=== PATIENT | female | born 1965 | race Caucasian/White ===

== ENCOUNTER 2017-09-08 14:23 | Inpatient (IN) | payer OTHER ==
[~2017-09-08] VITALS: Ht 157.5 cm; Wt 80.6 kg
[2017-09-08 14:46] VITALS: BP 170/91; PULSE 96; RESP 23; TEMP 98.3
--- NOTE | 2017-09-08 14:55 | PD ---
HPI Chief Complaint: Psychiatric Symptoms Time Seen by Provider: 14:37 Travel History International Travel<30 days: No Contact w/Intl Traveler<30days: No Traveled to known affect area: No History of Present Illness HPI 51-year-old female was [place] acted and brought in for evaluation. Patient was [place] acted for combative and threatening behavior to her at home. Patient denies any headache. Patient denies any chest pain or shortness of breath. Patient denies abdominal pain. Patient denies any fever chills. Patient has history of hypertension, diabetes, hyperlipidemia. Patient is unable to tolerate medication for hyperlipidemia. Patient is not on any medication for hyperlipidemia. Patient denies any alcohol or illicit drug abuse. Patient has history of ADD and was on Adderall until recently when she took herself off the Adderall. Patient tried to lose weight and was taking caffeine supplement. Patient states that the combination with caffeine and Adderall made her very jittery so she stopped taking Adderall. PFSH Past Medical History Diabetes: Yes ?: Not Social History Tobacco Use: No Allergies-Medications (Allergen,Severity, Reaction): Coded Allergies: No Known Allergies (Unverified , 09/08/17) Reported Meds & Prescriptions Reported Meds & Active Scripts Active Reported Climara Pro Patch 168 HR (Estradiol-Levonorgestrel Patch 168 HR) 0.045-0.015 Mg/ 24 Hr Patch 1 Patch I-DERMAL Q7D Remove old patch when new one placed. Lisinopril 10 Mg Tab 10 Mg PO DAILY Metformin (Metformin HCl) 500 Mg Tab 1,000 Mg PO DAILY With a meal Adderall (Amphetamine-Dextroamphetamine) 30 Mg Tab 60 Mg PO BID Avoid late evening doses. Space doses at least 4 to 6 hours if more than once/day dosing. Xanax (Alprazolam) 0.5 Mg Tab 0.5 Mg PO BID Victoza Inj (Liraglutide Inj) 18 Mg/3 Ml Pen 1.2 Mg SQ DAILY Review of Systems General / Constitutional: No: Fever Eyes: No: Visual changes HENT: No: Headaches Cardiovascular: No: Chest Pain or Discomfort Respiratory: No: Shortness of Breath Gastrointestinal: No: Abdominal Pain Genitourinary: No: Dysuria Musculoskeletal: No: Pain Skin: No Rash Neurologic: No: Weakness Psychiatric: No: Depression Endocrine: No: Polydipsia Hematologic/Lymphatic: No: Easy Bruising Physical Exam Narrative GENERAL: Well-nourished, well-developed patient. SKIN: Focused skin assessment warm/dry. HEAD: Normocephalic. EYES: No scleral icterus. No injection or drainage. NECK: Supple, trachea midline. No JVD or lymphadenopathy. CARDIOVASCULAR: Regular rate and rhythm without murmurs, gallops, or rubs. RESPIRATORY: Breath sounds equal bilaterally. No accessory muscle use. GASTROINTESTINAL: Abdomen soft, non-tender, nondistended. MUSCULOSKELETAL: No cyanosis, or edema. BACK: Nontender without obvious deformity. No CVA tenderness. Neurologic exam: Patient awake alert oriented 3. No obvious focal neurological deficit. Data Data Last Documented VS Vital Signs Date Time Temp Pulse Resp B/P (MAP) Pulse Ox O2 Delivery O2 Flow Rate FiO2 09/09/17 06:39 107 20 129/87 (101) 98 Room Air 09/08/17 14:46 98.3 Orders Orders Complete Blood Count With Diff (09/08/17 14:45) Comprehensive Metabolic Panel (09/08/17 14:45) Thyroid Stimulating Hormone (09/08/17 14:45) Psych Screen (09/08/17 14:45) Drug Screen, Random Urine (09/08/17 14:45) Acetaminophen (Tylenol) (09/08/17 17:30) Diet Regular Basic (09/08/17 Dinner) Clonidine (Catapres) (09/08/17 19:45) Olanzapine Odt (Zyprexa Zydis Odt) (09/08/17 20:15) Diphenhydramine (Benadryl) (09/08/17 20:30) Haloperidol Inj (Haldol Inj) (09/09/17 09:02) Diet Diabetic (09/09/17 Lunch) Lorazepam Inj (Ativan Inj) (09/09/17 09:03) Haloperidol Inj (Haldol Inj) (09/09/17 09:01) Lorazepam Inj (Ativan Inj) (09/09/17 09:15) Lorazepam Inj (Ativan Inj) (09/09/17 09:01) Quetiapine (Seroquel) (09/09/17 21:00) Admit To Inpatient Psych (09/09/17 ) Vital Signs (Adult) RAMON.Q12H.E (09/09/17 09:09) Activity Oob Ad Heidi (09/09/17 09:09) Diet Heart Healthy (09/09/17 Breakfast) Lorazepam (Ativan) (09/09/17 09:15) Lorazepam Inj (Ativan Inj) (09/09/17 09:15) Acetaminophen (Tylenol) (09/09/17 09:15) Magnesium Hydroxide Liq (Milk Of Magnesi (09/09/17 09:15) Al-Mag Hy-Si 40-40-4 Mg/Ml Liq (Mag-Al P (09/09/17 09:15) Nicotine 21 Mg Patch.24 Hr (Habitrol 21 (09/09/17 09:15) Basic Metabolic Panel (Bmp) (09/10/17 06:00) Lipid Profile (09/10/17 06:00) Hemoglobin (Hgb) A1c (09/10/17 06:00) Alcohol Withdrawal Asmt-Ciwa Q4HX18 (09/09/17 09:09) Flumazenil Inj (Romazicon Inj) (09/09/17 09:15) Lorazepam (Ativan) (09/09/17 09:15) Lorazepam Inj (Ativan Inj) (09/09/17 09:15) Lorazepam (Ativan) (09/09/17 09:15) Lorazepam Inj (Ativan Inj) (09/09/17 09:15) Lorazepam Inj (Ativan Inj) (09/09/17 09:15) Lorazepam Inj (Ativan Inj) (09/09/17 09:15) Labs Laboratory Tests Test 09/08/17 15:04 White Blood Count 7.2 TH/MM3 Red Blood Count 5.40 MIL/MM3 Hemoglobin 14.4 GM/DL Hematocrit 43.8 % Mean Corpuscular Volume 81.1 FL Mean Corpuscular Hemoglobin 26.8 PG Mean Corpuscular Hemoglobin Concent 33.0 % Red Cell Distribution Width 14.3 % Platelet Count 291 TH/MM3 Mean Platelet Volume 7.5 FL Neutrophils (%) (Auto) 72.1 % Lymphocytes (%) (Auto) 21.2 % Monocytes (%) (Auto) 5.8 % Eosinophils (%) (Auto) 0.5 % Basophils (%) (Auto) 0.4 % Neutrophils # (Auto) 5.2 TH/MM3 Lymphocytes # (Auto) 1.5 TH/MM3 Monocytes # (Auto) 0.4 TH/MM3 Eosinophils # (Auto) 0.0 TH/MM3 Basophils # (Auto) 0.0 TH/MM3 CBC Comment DIFF FINAL Differential Comment Blood Urea Nitrogen 21 MG/DL Creatinine 0.74 MG/DL Random Glucose 174 MG/DL Total Protein 7.9 GM/DL Albumin 4.0 GM/DL Calcium Level 9.1 MG/DL Alkaline Phosphatase 79 U/L Aspartate Amino Transf (AST/SGOT) 18 U/L Alanine Aminotransferase (ALT/SGPT) 26 U/L Total Bilirubin 0.3 MG/DL Sodium Level 140 MEQ/L Potassium Level 4.1 MEQ/L Chloride Level 106 MEQ/L Carbon Dioxide Level 23.8 MEQ/L Anion Gap 10 MEQ/L Estimat Glomerular Filtration Rate 82 ML/MIN Thyroid Stimulating Hormone 3rd Gen 2.070 uIU/ML Urine Opiates Screen NEG Urine Barbiturates Screen NEG Urine Amphetamines Screen POS Urine Benzodiazepines Screen POS Urine Cocaine Screen NEG Urine Cannabinoids Screen NEG [facility] Medical Decision Making Medical Screen Exam Complete: Yes Emergency Medical Condition: Yes Differential Diagnosis Differential diagnosis including adjustment disorder, mental stress. Narrative Course 51-year-old female was [place] acted for combative and threatening behavior to . Bryant Luevano MD Sep 08, 2017 14:55
[2017-09-08 15:28] LABS: AUTOMATED NEUTROPHIL # 5.2 TH/MM3 (1.8-7.7); BASOPHIL % 0.4 % (0.0-2.0); EOSINOPHIL % 0.5 % (0.0-4.0); HEMATOCRIT 43.8 % (35.0-46.0); HEMOGLOBIN 14.4 GM/DL (11.6-15.3); LYMPH % 21.2 % (9.0-44.0); LYMPHOCYTE # 1.5 TH/MM3 (1.0-4.8); MEAN CELL VOLUME 81.1 FL (80.0-100.0); MEAN CORPUSCULAR HEMOGLOBIN 26.8 PG (27.0-34.0); MEAN PLATELET VOLUME 7.5 FL (7.0-11.0); MONO % 5.8 % (0.0-8.0); MONOCYTE # 0.4 TH/MM3 (0-0.9); NEUT % 72.1 % (16.0-70.0); PLATELET COUNT 291 TH/MM3 (150-450); RED CELL DISTRIBUTION WIDTH 14.3 % (11.6-17.2); WHITE BLOOD COUNT 7.2 TH/MM3 (4.0-11.0)
[2017-09-08] MEDS ORDERED: VICT18IN SQ (15:30)
[2017-09-08 16:02] LABS: AST (GOT) 18 U/L (15-37); BICARBONATE 23.8 MEQ/L (21.0-32.0); BLOOD UREA NITROGEN 21 MG/DL (7-18); CALCIUM 9.1 MG/DL (8.5-10.1); CHLORIDE 106 MEQ/L (98-107); CREATININE 0.74 MG/DL (0.50-1.00); GLOMERULAR FILTRATION RATE 82 ML/MIN (>89); GLUCOSE,RANDOM 174 MG/DL (74-106); SODIUM (NA) 140 MEQ/L (136-145)
[2017-09-08 16:13] LABS: ALKALINE PHOSPHATASE 79 U/L (45-117); ALT (GPT) 26 U/L (10-53); TOTAL BILIRUBIN ADULT 0.3 MG/DL (0.2-1.0); TOTAL PROTEIN 7.9 GM/DL (6.4-8.2)
[2017-09-08 16:25] VITALS: BP 170/95; PULSE 89; RESP 18; O2SAT 99
[2017-09-08] MEDS ORDERED: ACETAMINOPHEN 325 MG TAB PO ONE (17:30)
[2017-09-08 18:32] VITALS: BP 200/99; PULSE 87; RESP 18; O2SAT 96
[2017-09-08] MEDS ORDERED: cloNIDine HCL 0.1 MG TAB PO ONE (19:45)
[2017-09-08] MEDS ORDERED: OLANZapine ODT 10 MG TAB PO ONE (20:15)
[2017-09-08] MEDS ORDERED: diphenhydrAMINE HCL 50 MG CAP PO ONE (20:30)
--- NOTE | 2017-09-08 20:32 | PD ---
History of Present Illness Chief Complaint: Psychiatric Symptoms Time Seen by Provider: 19:50 Travel History International Travel<30 Days: No Contact w/Intl Traveler<30days: No Known affected area: No Legal Status Legal Status: [place] Act [place] Act Signed By: Marta Ruvalcaba Act Comment: [place] Act instituted by officer Zander Desir. History of Present Illness: History of Present Illness HPI 51-year-old, , female, here on vacation from [place], with history of attention deficit disorder and anxiety disorder who was placed under [place] act by law enforcement. The [place] act report alleges that the patient stopped taking her Adderall approximately 9 weeks ago when she started to drink a special coffee for weight loss. Patient began to act irrational, aggressive and argumentative towards her . She challenge officers and demanded to be arrested, shot and rotates. She stated that if her would not tell the truth she was going to harm herself. No previous history with [facility]. Current toxicology is positive for amphetamines and benzos. Patient arrived in [facility] and has been intrusive , uncooperative refusing to answer questions and engage in psychiatric screening, talking very loudly with her family members on the phone, crying intermittently, threatening to file a lawsuit against the police department, and anyone involved in her care " that tells a lie". She is alert, oriented, her speech is loud. She is tangential. She demands that she see the notes that I am writing down as well as demanding me to write wide she believes is important for me to write. He is paranoid she is worried that people are going to be able to hear what she saying. She is also very concerned that her as well as her family, and the police told her that they never lied and that she finds it very hard to believe. Telephone call to her , Skip at [phone] with her verbal consent. He reports that she has been prescribed Adderall for the last 20 years and that in June she decided to get off the Adderall and begin a special coffee, Revitalu, that would help her lose weight. He reports that for the past 2 months she has been engaging in arguments with neighbors, confrontations with her daughter, recording everything for accountability and then posting the families interactions on Facebook, has been filming her while he drives , has been had impaired sleep with waking up multiple times at night. He was under the impression that she had been off Adderall. As per her medication bottles which she has at home she had been prescribed 30 mg of Adderall 4 times a day and Xanax 0.5 twice a day. He became concerned when on her way down to [place] she threatened that she was going to get out of their car and was going to hitchhike back to [place]. PFSH Past Medical History ADHD: Yes High Cholesterol: Yes Diabetes: Yes Patient Takes Glucophage: No Hypertension: Yes Influenza Vaccination: No ?: Not Tubal Ligation: Yes Past Surgical History Other Surgery: Yes (GASTRIC BYPASS) Psychiatric History Psychiatric History Hx Psychiatric Treatment: None reported History of Inpatient Treatment: No Guns or firearms in home: No Social History 36 years. Lives with her and takes care of her 2 grandchildren. Hx Alcohol Use: No Hx Tobacco Use: No Hx Substance Use: No Hx of Substance Use Treatment: No Family Psychiatric History Negative Allergies-Medications (Allergen,Severity, Reaction): Coded Allergies: No Known Allergies (Unverified , 09/08/17) Reported Meds & Prescriptions Reported Meds & Active Scripts Active Reported Victoza Inj (Liraglutide Inj) 18 Mg/3 Ml Pen 1.2 Mg SQ DAILY Review of Systems ROS Limitations: Uncooperative Mental Status Examination Appearance: Appropriate Consciousness: Alert Orientation: x4 Motor Activity: Normal gait Speech: Unremarkable Language: Adequate Fund of Knowledge: Adequate Attention and Concentration: Easily Distracted Memory: Unremarkable Mood: Irritable Affect: Other Thought Process & Associations: Circumstantial, Tangential Thought Content: Preoccupations (with people lying) Hallucination Type: None Delusion Type: Paranoid Suicidal Ideation: No Suicidal Plan: No Suicidal Intention: No Homicidal Ideation: No Homicidal Plan: No Homicidal Intention: No Insight: Poor Judgment: Poor MDM Medical Decision Making Medical Record Reviewed: Yes Assessment/Plan 51-year-old, , female, here on vacation from [place], with history of attention deficit disorder and anxiety disorder who was placed under [employer] act by law enforcement. The [place] act report alleges that the patient stopped taking her Adderall approximately 9 weeks ago when she started to drink a special coffee for weight loss. Patient began to act irrational, aggressive and argumentative towards her . She challenge officers and demanded to be arrested, shot and rotates. She stated that if her would not tell the truth she was going to harm herself. Patient presents to [facility] in agitated , paranoid, having trouble focusing, impaired concentration. Family is concerned regarding her current state and fear that she will harm herself due to her poor judgment. She continues to deny that she has been taking the Adderall and that she has not had it since June. She has required ETO while in the ED. Patient will need to be monitored and reevaluated in the morning for disposition. Orders Orders Complete Blood Count With Diff (09/08/17 14:45) Comprehensive Metabolic Panel (09/08/17 14:45) Thyroid Stimulating Hormone (09/08/17 14:45) Psych Screen (09/08/17 14:45) Drug Screen, Random Urine (09/08/17 14:45) Acetaminophen (Tylenol) (09/08/17 17:30) Diet Regular Basic (09/08/17 Dinner) Clonidine (Catapres) (09/08/17 19:45) Olanzapine Odt (Zyprexa Zydis Odt) (09/08/17 20:15) Diphenhydramine (Benadryl) (09/08/17 20:30) Results Vital Signs Date Time Temp Pulse Resp B/P (MAP) Pulse Ox O2 Delivery O2 Flow Rate FiO2 09/08/17 18:32 87 18 200/99 (132) 96 Room Air 09/08/17 16:25 89 18 170/95 (120) 99 Room Air 09/08/17 14:46 98.3 96 23 170/91 (117) Laboratory Tests Test 09/08/17 15:04 White Blood Count 7.2 Red Blood Count 5.40 Hemoglobin 14.4 Hematocrit 43.8 Mean Corpuscular Volume 81.1 Mean Corpuscular Hemoglobin 26.8 Mean Corpuscular Hemoglobin Concent 33.0 Red Cell Distribution Width 14.3 Platelet Count 291 Mean Platelet Volume 7.5 Neutrophils (%) (Auto) 72.1 Lymphocytes (%) (Auto) 21.2 Monocytes (%) (Auto) 5.8 Eosinophils (%) (Auto) 0.5 Basophils (%) (Auto) 0.4 Neutrophils # (Auto) 5.2 Lymphocytes # (Auto) 1.5 Monocytes # (Auto) 0.4 Eosinophils # (Auto) 0.0 Basophils # (Auto) 0.0 CBC Comment DIFF FINAL Differential Comment Blood Urea Nitrogen 21 Creatinine 0.74 Random Glucose 174 Total Protein 7.9 Albumin 4.0 Calcium Level 9.1 Alkaline Phosphatase 79 Aspartate Amino Transf (AST/SGOT) 18 Alanine Aminotransferase (ALT/SGPT) 26 Total Bilirubin 0.3 Sodium Level 140 Potassium Level 4.1 Chloride Level 106 Carbon Dioxide Level 23.8 Anion Gap 10 Estimat Glomerular Filtration Rate 82 Thyroid Stimulating Hormone 3rd Gen 2.070 Urine Opiates Screen NEG Urine Barbiturates Screen NEG Urine Amphetamines Screen POS Urine Benzodiazepines Screen POS Urine Cocaine Screen NEG Urine Cannabinoids Screen NEG Diagnosis Primary Impression: Psychosis Problem Qualifiers Primary Impression: Psychosis Qualified Codes: F29 - Unspecified psychosis not due to a substance or known physiological condition Tomeka Molina [facility] Sep 08, 2017 20:32
[2017-09-08 23:33] VITALS: BP 105/59; PULSE 81; RESP 20; O2SAT 98
[2017-09-09 06:39] VITALS: BP 129/87; PULSE 107; RESP 20; O2SAT 98
[2017-09-09] MEDS ORDERED: LORazepam 2 MG/ML VIAL IM STA (09:01)
[2017-09-09] MEDS ORDERED: HALOPERIDOL LACTATE 5 MG/ML AMP IM STA (09:01)
[2017-09-09] MEDS ORDERED: HALOPERIDOL LACTATE 5 MG/ML AMP ONE (09:02)
[2017-09-09] MEDS ORDERED: LORazepam 2 MG/ML VIAL ONE (09:03)
[2017-09-09] MEDS ORDERED: LORazepam 2 MG/ML VIAL IV PUSH PRN ×4 (09:15)
[2017-09-09] MEDS ORDERED: LORazepam 2 MG/ML VIAL IM PRN ×2 (09:15)
[2017-09-09] MEDS ORDERED: FLUMAZENIL 0.5 MG/5 ML VIAL IV PUSH PRN (09:15)
[2017-09-09] MEDS: NICOTINE 21 MG/24 HR PATCH T-DERMAL SCH (09:15)
[2017-09-09] MEDS ORDERED: LORazepam 0.5 MG TAB PO PRN (09:15)
[2017-09-09] MEDS ORDERED: LORazepam 2 MG TAB PO PRN (09:15)
[2017-09-09] MEDS ORDERED: LORazepam 1 MG TAB PO PRN (09:15)
[2017-09-09] MEDS ORDERED: LORazepam 2 MG/ML VIAL IV PUSH ONE (09:15)
[2017-09-09] MEDS ORDERED: ACETAMINOPHEN 325 MG TAB PO PRN (09:15)
[2017-09-09] MEDS ORDERED: ALUMINUM/MAGNESIUM/SIMETH 30 ML CUP PO PRN (09:15)
[2017-09-09] MEDS ORDERED: CLIMDIS I-DERMAL (10:10)
[2017-09-09] MEDS ORDERED: ALPR.5 PO (10:10)
[2017-09-09] MEDS ORDERED: METF500T PO (10:10)
[2017-09-09] MEDS ORDERED: LISI10TA3 PO (10:10)
[2017-09-09] MEDS ORDERED: ADDE30TA PO (10:10)
--- NOTE | 2017-09-09 11:49 | HHI.HP ---
Provisional Diagnosis Admission Date Sep 09, 2017 at 09:13 [place] I. Unspecified psychosis, r/o substance-induced psychosis, r/o bipolar disorder type I, manic episode, with psychotic features, r/o schizoaffective disorder, r/ o late onset schizophrenia, self-reported ADHD. Benzodiazepines and amphetamines use disorder. [place] II. Unspecified personality disorder, cluster B traits, R/o Borderline Personality disorder [place] III. DM, HTN [place] IV. Family dynamic problems [place] V. 40 Certification of Person's Competence To Provide Express and Informed Consent I have personally examined Mary Davis , a person being served at [facility] on, Sep 09, 2017 11:14. Express and informed consent means consent voluntarily given in writing, by a competent person, after sufficient explanation and disclosure of the subject matter involved to enable the person to make a knowing and willful decision without any element of force, fraud, deceit, duress, or other form of constraint or coercion. This person is 18 years of age or older, is not now known to be incompetent to consent to treatment with a guardian advocate, and does not have a health care surrogate or proxy currently making medical treatment decisions. I have found this person to be one of the following: [] Competent to provide express and informed consent, as defined above, for voluntary admission to this facility and is competent to provide express and informed consent for treatment. He/she has the consistent capacity to make well reasoned, willful, and knowing decisions concerning his or her medical or mental health treatment. The person fully and consistently understands the purpose of the admission for examination/placement and is fully capable of personally exercising all rights assured [place] [x] Incompetent to provide express and informed consent to voluntary admission, and this is incompetent to provide express and informed consent to treatment. The person must be transferred to involuntary status and a petition for a guardian advocate filed with the Circuit Court. [] Refusing to provide express and informed consent to voluntary admission but is competent to provide express and informed consent for treatment. The person must be discharged or transferred to involuntary status. Form shall be completed within 24 hours of a person's arrival at the receiving facility and filed in the clinical record of each person: 1. Admitted on a voluntary basis 2. Permitted to provide express and informed consent to his/her own treatment 3. Allowed to transfer from involuntary to voluntary status 4. Prior to permitting a person to consent to his or her own treatment after having been previously found incompetent to consent to treatment. History of Present Illness Capacity: Lacks Capacity HPI The patient is a 51 year-old woman, she is , domiciled in [place] , she is imbrication in [facility], employed, she has a self-reported psychiatric history of anxiety and ADHD, no previous psychiatric hospitalizations, no previous suicide attempts, she is in Adderall 30 mg 4 times per day and Xanax 1 mg 3 times per day, prescribed by PCP, she has a medical history of hypertension and diabetes, who was placed under [place] act by law enforcement due to aggressive and disorganized behavior. The [place] act report alleges that the patient stopped taking her Adderall approximately 9 weeks ago when she started to drink a special coffee for weight loss. Patient began to act irrational, aggressive and argumentative towards her . She challenge officers and demanded to be arrested, shot and rotates. She stated that if her would not tell the truth she was going to harm herself. Patient toxicologies is positive for benzodiazepines and amphetamines. Documentation was reviewed. Collateral information from her Skip Davis, , was obtained. The patient was initially seen by Ms. Tomeka Molina yesterday, her documentation was reviewed. She left the patient for reevaluation and longitudinal observation with a hypothesis that the patient most probably was just intoxicated and by today she will be sober and at the baseline. As per nurse report, the patient has been very disruptive in the unit , agitated, disorganized, making a lot of accusations and alligations and needed ETO to calm her down. As per Ms Molina yesterday's: Patient arrived in J pod and has been intrusive , uncooperative refusing to answer questions and engage in psychiatric screening, talking very loudly with her family members on the phone, crying intermittently , threatening to file a lawsuit against the police department, and anyone involved in her care " that tells a lie". She is alert, oriented, her speech is loud. She is tangential. She demands that she see the notes that I am writing down as well as demanding me to write wide she believes is important for me to write. He is paranoid she is worried that people are going to be able to hear what she saying. She is also very concerned that her as well as her family, and the police told her that they never lied and that she finds it very hard to believe. Today on psychiatric evaluation the patient is very hyperactive, psychomotor agitated, talkative, speaking very loud in the unit. It took me a long time to de-escalate her and have a conversation with her. The patient reports that she has been kidnapped he "by these people and his nurses". Says that the police has been lying about her. She says that the only thing that she has been doing is trying to make peace with her family. "I been trying to go to their houses and tell them what is wrong with them". As the patient started talking about her daughter, she started crying profusely and becomes tangential and disorganized. The patient states that she has not been taking benzodiazepine and amphetamines in the last week, "I suspect that somebody has been putting the amphetamines in my food". She says that she has been taking 30 mg of Adderall 4 times per day for 17 years "for my ADHD". She also has been taken Xanax 1 mg 3 times per day for a long time, which is unable to clarify what is the reason she is taking Xanax for, she states "is just for insomnia". She denies suicidal and homicidal ideation, she denies visual and auditory hallucinations. During my evaluation the patient has a very rapid speech, with frequent development, loosening of associations, she is internally preoccupied, highly paranoid. As per conversation with her , he says that in the last 8 days the patient has barely been sleeping. She has been focused in multiple activity during the day and nighttime. Apparently, she has been going to family members and friends houses and telling them that she is there to help them with their problems "when there is not even any problem". She also has been making multiple behaviors that do not make any sense and posting then in Facebook. As well, she has been making multiple irrational comments in Facebook. He clarifies that is the patient is in the ER she has been calling him every 5 minutes and talking nonsense with him. He says that the patient has not been herself, she has been experiencing a very important change in her personality in the last 8 days. This is the first time that the patient has an episode like this. He clarifies that he is not very sure if the patient has been abusing her medications, but he is a started to suspect the most probably abusing Adderall and Xanax is part responsible for this presentation. He is in a total agreement with a psychiatric hospitalization for the patient started medications for psychosis. After the patient was evaluated by me, he started to request to be discharged immediately, I tried to de-escalate her verbally, but she was not responsive and threatened his staff and other patients and had to be medicated with Haldol 5 mg and Ativan 2 mg IM to help her to calm down. Review of Systems Constitutional: DENIES: Diaphoretic episodes, Fatigue, Fever, Weight gain, Weight loss, Chills, Dizziness, Change in appetite, Night Sweats Endocrine: DENIES: Abnorml menstrual pattern, Heat/cold intolerance, Polydipsia , Polyuria, Polyphagia Eyes: DENIES: Blurred vision, Diplopia, Eye inflammation, Eye pain, Vision loss , Photosensitivity, Double Vision Ears, nose, mouth, throat: DENIES: Tinnitus, Hearing loss, Vertigo, Nasal discharge, Oral lesions, Throat pain, Hoarseness, Ear Pain, Running Nose, Epistaxis, Sinus Pain, Toothache, Odynophagia Respiratory: DENIES: Apneas, Cough, Snoring, Wheezing, Hemoptysis, Sputum production, Shortness of breath Cardiovascular: DENIES: Chest pain, Palpitations, Syncope, Dyspnea on Exertion , PND, Lower Extremity Edema, Orthopnea, Claudication Gastrointestinal: DENIES: Abdominal pain, Black stools, Bloody stools, Constipation, Diarrhea, Nausea, Vomiting, Difficulty Swallowing, Anorexia Genitourinary: DENIES: Abnormal vaginal bleeding, Dysmenorrhea, Dyspareunia, Sexual dysfunction, Urinary frequency, Urinary incontinence, Urgency, Hematuria , Dysuria, Nocturia, Vaginal discharge Integumentary: DENIES: Abnormal pigmentation, Pruritus, Rash, Nail changes, Breast masses, Breast skin changes, Nipple discharge Hematologic/lymphatic: DENIES: Bruising, Lymphadenopathy Immunologic/allergic: DENIES: Eczema, Urticaria Neurologic: DENIES: Abnormal gait, Headache, Localized weakness, Paresthesias, Seizures, Speech Problems, Tremor, Poor Balance Psychiatric: COMPLAINS OF: Mood changes, Agitation, Delusions Past Psych History Violence risk - others (6 mos) Increased Violence risk - self (6 mos) Increased Substance Abuse History Drugs/Alcohol past 12 months Patient denies the use of alcohol and illegal drugs. Patient has been abusing amphetamines and benzodiazepines Past Family Social History Coded Allergies: No Known Allergies (Unverified , 09/08/17) Reported Medications Estradiol-Levonorgestrel Patch 168 HR (Climara Pro Patch 168 HR) 0.045-0.015 Mg/ 24 Hr Patch, 1 PATCH I-DERMAL Q7D, #4 PATCH 0 Refills Remove old patch when new one placed. 09/09/17 Lisinopril (Lisinopril) 10 Mg Tab, 10 MG PO DAILY, #30 TAB 0 Refills 09/09/17 Metformin (Metformin) 500 Mg Tab, 1000 MG PO DAILY for Blood Sugar Management, # 30 TAB 0 Refills With a meal 09/09/17 Amphetamine-Dextroamphetamine (Adderall) 30 Mg Tab, 60 MG PO BID for Hyperactivity Control, #60 TAB 0 Refills Avoid late evening doses. Space doses at least 4 to 6 hours if more than once/day dosing. 09/09/17 Alprazolam (Xanax) 0.5 Mg Tab, 0.5 MG PO BID, TAB 0 Refills 09/09/17 Liraglutide Inj (Victoza Inj) 18 Mg/3 Ml Pen, 1.2 MG SQ DAILY, #1 PEN 0 Refills 09/08/17 Current Medications Medications (Trade) Dose Ordered Sig/Christel Route Start Time Stop Time Status Last Admin (SEROquel) 50 mg BID PO 09/09/17 21:00 (Ativan) 1 mg Q6H PRN PO 09/09/17 09:15 (Ativan Inj) 1 mg Q6H PRN IM 09/09/17 09:15 (Tylenol) 650 mg Q4H PRN PO 09/09/17 09:15 (Milk Of Magnesia Liq) 30 ml DAILY PRN PO 09/09/17 09:15 (Mag-Al Plus Susp Liq) 30 ml Q6H PRN PO 09/09/17 09:15 (Habitrol 21 Mg Patch.24 Hr) 1 patch DAILY T-DERMAL 09/09/17 09:15 (Romazicon Inj) 0.2 mg Q1M PRN IV PUSH 09/09/17 09:15 (Ativan) 1 mg Q4H PRN PO 09/09/17 09:15 (Ativan Inj) 1 mg Q4H PRN IV PUSH 09/09/17 09:15 (Ativan) 2 mg Q2H PRN PO 09/09/17 09:15 (Ativan Inj) 2 mg Q2H PRN IV PUSH 09/09/17 09:15 (Ativan Inj) 2 mg Q1H PRN IV PUSH 09/09/17 09:15 (Ativan Inj) 2 mg Q15M PRN IV PUSH 09/09/17 09:15 (Glucophage) 500 mg BIDPC PO 09/09/17 18:00 Miscellaneous Information 1 DAILY T-DERMAL 09/10/17 09:00 Family Psych History No family psychiatric history Social History Patient was born and raised in [place], she lives in [place] with her , she is in [facility] for medications, she is employed, mother of 3 kids, her highest level of education is 12 Patient's Strengths (min. 2) Family support Physical Exam Very hyperactive, agitated Vital Signs Vital Signs Date Time Temp Pulse Resp B/P (MAP) Pulse Ox O2 Delivery O2 Flow Rate FiO2 09/09/17 06:39 107 20 129/87 (101) 98 Room Air 09/08/17 14:46 98.3 Lab Results Test 09/08/17 15:04 White Blood Count 7.2 TH/MM3 Red Blood Count 5.40 MIL/MM3 Hemoglobin 14.4 GM/DL Hematocrit 43.8 % Mean Corpuscular Volume 81.1 FL Mean Corpuscular Hemoglobin 26.8 PG Mean Corpuscular Hemoglobin Concent 33.0 % Red Cell Distribution Width 14.3 % Platelet Count 291 TH/MM3 Mean Platelet Volume 7.5 FL Neutrophils (%) (Auto) 72.1 % Lymphocytes (%) (Auto) 21.2 % Monocytes (%) (Auto) 5.8 % Eosinophils (%) (Auto) 0.5 % Basophils (%) (Auto) 0.4 % Neutrophils # (Auto) 5.2 TH/MM3 Lymphocytes # (Auto) 1.5 TH/MM3 Monocytes # (Auto) 0.4 TH/MM3 Eosinophils # (Auto) 0.0 TH/MM3 Basophils # (Auto) 0.0 TH/MM3 CBC Comment DIFF FINAL Differential Comment Blood Urea Nitrogen 21 MG/DL Creatinine 0.74 MG/DL Random Glucose 174 MG/DL Total Protein 7.9 GM/DL Albumin 4.0 GM/DL Calcium Level 9.1 MG/DL Alkaline Phosphatase 79 U/L Aspartate Amino Transf (AST/SGOT) 18 U/L Alanine Aminotransferase (ALT/SGPT) 26 U/L Total Bilirubin 0.3 MG/DL Sodium Level 140 MEQ/L Potassium Level 4.1 MEQ/L Chloride Level 106 MEQ/L Carbon Dioxide Level 23.8 MEQ/L Anion Gap 10 MEQ/L Estimat Glomerular Filtration Rate 82 ML/MIN Thyroid Stimulating Hormone 3rd Gen 2.070 uIU/ML Urine Opiates Screen NEG Urine Barbiturates Screen NEG Urine Amphetamines Screen POS Urine Benzodiazepines Screen POS Urine Cocaine Screen NEG Urine Cannabinoids Screen NEG Mental Status Examination Appearance: Appropriate Consciousness: Alert Orientation: x4 Motor Activity: Normal gait Speech: Unremarkable Language: Adequate Fund of Knowledge: Adequate Attention and Concentration: Easily Distracted Memory: Unremarkable Mood: Irritable Affect: Other Thought Process & Associations: Circumstantial, Tangential Thought Content: Bizarre thinking, Preoccupations (with people lying), Delusional Hallucination Type: None Delusion Type: Paranoid Suicidal Ideation: No Suicidal Plan: No Suicidal Intention: No Homicidal Ideation: No Homicidal Plan: No Homicidal Intention: No Insight: Poor Judgment: Poor Assessment & Plan Problem List: (1) Unspecified psychosis ICD Codes: F29 - Unspecified psychosis not due to a substance or known physiological condition Assessment & Plan: On my psychiatric evaluation today the patient presents acutely psychotic, agitated, restless, disruptive in the unit. The patient has a prominent paranoia, persecutory delusions, rapid speech, labile affect, difficulties with reality testing, aggressive and hostile speech and behavior, tangential and disorganized thought process. She does have some moments of lucidity in which she make some sense, but with stress and pressure her ego boundaries seems to fall to the floor. As per , in the last 8 days the patient had experienced a significant change in her personality, she has been engaging in unusual bizarre and disorganized activities, sleeping poorly, posting nonsensical-irrational videos and statements in social media and becoming more and more aggressive. This is a patient who has a reported history of ADHD and has been taken Adderall 30 mg 4 times per day for about 20 years prescribed by PCP, she also taking Xanax 1 mg 3 times daily "for insomnia ", her is in agreement that there is a possibility of the patient has been abusing these medications even more than usual during the last days, but this is actually unclear. Patient is oriented 3, and she does not seem to have any major cognitive impairment. I have no very sure if this constellation of symptoms are secondary to substance intoxication/withdrawal or they could be actually part of primary psychotic illness decompensation, what is cleared to me is that patient meet criteria for involuntary psychiatric commitment for stabilization and safety. There are also many characteristics of her personality that suggests a potential cluster B personality pathology, but further longitudinal observation and more collateral information is crucial in order to make the right diagnosis. I will start the patient Seroquel 25 mg twice daily. Patient might benefit also of a mood stabilizer later on. Will order EKG for QTc interval baseline. Will order metformin 500 mg twice daily for her diabetes. Psychiatric consult for second opinion. Hospitalist consult to manage diabetes and hypertension. grain farmworker intervention for psychosocial assessment, collateral information, individual and group therapy, to coordinate safe discharge plan. This plan was discussed with her , he verbalized agreement Assessment & Plan Estimated LOS: Lawrence Cohen MD Sep 09, 2017 11:49
[2017-09-09 12:15] VITALS: BP 126/69; PULSE 75; RESP 18; TEMP 97.5; O2SAT 96
[2017-09-09] MEDS ORDERED: GLUCAGON 1 MG/ML VIAL OTHER PRN (13:15)
[2017-09-09] MEDS ORDERED: DEXTROSE 50% IN WATER 50 ML VIAL(D50) IV PUSH PRN (13:15)
[2017-09-09] MEDS: INSULIN ASPART SUPPLEMENTAL SCALE SQ SCH ×2 (17:00→20:53)
[2017-09-09] MEDS: metFORMIN HCL 500 MG TAB PO SCH (18:00)
--- NOTE | 2017-09-09 18:32 | PD.CONS ---
HPI Service [facility] Hospitalists Consult Requested By Psychiatry Reason for Consult med management HTN and DM Primary Care Physician No Primary Care Physician Diagnoses: History of Present Illness 52-year-old white female admitted by psychiatry, medicine consulted for management of hypertension + diabetes. Patient states she was in her usual state of health walking with her granddaughter, her allegedly called the scratch polisher because she was "out of character". Brought to the ER. Patient says she is a diabetic and says that her A1c numbers have been "good" but cannot remember the actual numbers. Says she takes Victoza and metformin very consistently. Also takes her blood pressure medications consistently. Denies any significant past medical history apart from diabetes and hypertension. Denies smoking IV drug use or alcohol drinking. 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 Per hx from ED note: "51-year-old, , female, here on vacation from [place], with history of attention deficit disorder and anxiety disorder who was placed under [employer] act by law enforcement. The [place] act report alleges that the patient stopped taking her Adderall approximately 9 weeks ago when she started to drink a special coffee for weight loss. Patient began to act irrational, aggressive and argumentative towards her . She challenge officers and demanded to be arrested, shot and rotates. She stated that if her would not tell the truth she was going to harm herself." toxicology is positive for amphetamines and benzos. "Patient arrived in J pod and has been intrusive , uncooperative refusing to answer questions and engage in psychiatric screening, talking very loudly with her family members on the phone, crying intermittently, threatening to file a lawsuit against the police department, and anyone involved in her care " that tells a lie". She is alert, oriented, her speech is loud. She is tangential. She demands that she see the notes that I am writing down as well as demanding me to write wide she believes is important for me to write. He is paranoid she is worried that people are going to be able to hear what she saying. She is also very concerned that her as well as her family, and the police told her that they never lied and that she finds it very hard to believe. Telephone call to her , Skip at [phone] with her verbal consent. He reports that she has been prescribed Adderall for the last 20 years and that in June she decided to get off the Adderall and begin a special coffee, Revitalu, that would help her lose weight. He reports that for the past 2 months she has been engaging in arguments with neighbors, confrontations with her daughter, recording everything for accountability and then posting the families interactions on Facebook, has been filming her while he drives , has been had impaired sleep with waking up multiple times at night. He was under the impression that she had been off Adderall. As per her medication bottles which she has at home she had been prescribed 30 mg of Adderall 4 times a day and Xanax 0.5 twice a day. He became concerned when on her way down to [place] she threatened that she was going to get out of their car and was going to hitchhike back to [place]." Review of Systems Except as stated in HPI: all other systems reviewed are Neg Past Family Social History Allergies: Coded Allergies: No Known Allergies (Unverified , 09/08/17) Past Medical History Diabetes, hypertension Past Surgical History Family History No significant family history per patient Physical Exam Vital Signs Vital Signs Date Time Temp Pulse Resp B/P (MAP) Pulse Ox O2 Delivery O2 Flow Rate FiO2 09/09/17 12:22 09/09/17 12:15 97.5 75 18 126/69 (88) 96 09/09/17 06:39 107 20 129/87 (101) 98 Room Air 09/08/17 23:33 81 20 105/59 (74) 98 09/08/17 18:32 87 18 200/99 (132) 96 Room Air Physical Exam VS: afebrile GENERAL: Ambulating around, no acute distress, pleasant mood which turns into a sad mood when asking about the reason why she was brought to the ER SKIN: Warm and dry. EYES: Pupils equal and round. No scleral icterus. No injection or drainage. ENT: No nasal bleeding or discharge. Mucous membranes pink and moist. CARDIOVASCULAR: Regular rate and rhythm. no murmurs RESPIRATORY: No accessory muscle use. Clear to auscultation. Breath sounds equal bilaterally. GASTROINTESTINAL: Abdomen soft, non-tender, nondistended. Extremities: No clubbing, cyanosis, or edema. No obvious deformities. MUSCULOSKELETAL: adequate muscle bulk and tone for age and habitus NEUROLOGICAL: Awake and alert. No obvious cranial nerve deficits. No facial droop nor slurred speech noted. PSYCHIATRIC: Appropriate mood and affect; insight and judgment normal. Result Diagram: 09/08/17 1504 09/08/17 1504 Assessment and Plan Problem List: (1) Diabetes ICD Code: E11.9 - Type 2 diabetes mellitus without complications (2) HTN (hypertension) ICD Code: I10 - Essential (primary) hypertension Assessment and Plan Psychosis - psych managing Diabetes - LDSS while inpt w/ accuchecks HTN - stable, resume home BP meds Teja Galaviz MD Sep 09, 2017 18:32
[2017-09-09] MEDS: QUEtiapine FUMARATE 25 MG TAB PO SCH (20:39)
[2017-09-10 06:33] VITALS: BP 153/53; PULSE 68; RESP 22; TEMP 97.3; O2SAT 99
[2017-09-10] MEDS: INSULIN ASPART SUPPLEMENTAL SCALE SQ SCH ×4 (07:51→20:02)
[2017-09-10] MEDS: LISINOPRIL 10 MG TAB PO SCH (08:48)
[2017-09-10] MEDS: QUEtiapine FUMARATE 25 MG TAB PO SCH ×3 (08:48→20:02)
[2017-09-10] MEDS: NICOTINE 21 MG/24 HR PATCH T-DERMAL SCH (08:48)
[2017-09-10] MEDS: metFORMIN HCL 500 MG TAB PO SCH ×2 (08:48→16:51)
[2017-09-10] MEDS: REMOVE OLD NICOTINE PATCH T-DERMAL SCH (08:49)
[2017-09-10 10:58] LABS: BICARBONATE 27.4 MEQ/L (21.0-32.0); BLOOD UREA NITROGEN 13 MG/DL (7-18); CALCIUM 9.3 MG/DL (8.5-10.1); CHLORIDE 102 MEQ/L (98-107); CHOLESTEROL 280 MG/DL (120-200); CREATININE 0.85 MG/DL (0.50-1.00); GLOMERULAR FILTRATION RATE 70 ML/MIN (>89); GLUCOSE,RANDOM 129 MG/DL (74-106); SODIUM (NA) 137 MEQ/L (136-145); TRIGLYCERIDES 103 MG/DL (42-150)
[2017-09-10 11:01] LABS: CHOLESTEROL/ HDL RATIO 3.96 RATIO; HDL CHOLESTEROL 70.7 MG/DL (40.0-60.0); LDL CHOLESTEROL 189 MG/DL (0-99)
[2017-09-10 13:35] LABS: HEMOGLOBIN A1C 5.9 % (4.3-6.0)
--- NOTE | 2017-09-10 16:47 | HHI.PYPN ---
Subjective Remarks This is a request for second opinion. Admission note was reviewed and I agree with the history. Patient was seen and evaluated with nursing. CIWA is 0. Insight is very poor and patient blames her for her admission. She remains perseverant on "the whole truth." Affect is elevated, she was seen dancing to the TV earlier in the day. Says she is sleeping fine. She denies suicidal or homicidal ideation intent or plan. Denies auditory visual hallucinations. Mental Status Examination Appearance: Appropriate Consciousness: Alert Orientation: x4 Motor Activity: Normal gait Speech: Unremarkable Language: Adequate Fund of Knowledge: Adequate Attention and Concentration: Easily Distracted Memory: Unremarkable Mood: Irritable Affect: Labile, Other Thought Process & Associations: Circumstantial, Tangential Thought Content: Bizarre thinking, Preoccupations (with people lying), Delusional Hallucination Type: None Delusion Type: Paranoid Suicidal Ideation: No Suicidal Plan: No Suicidal Intention: No Homicidal Ideation: No Homicidal Plan: No Homicidal Intention: No Insight: Poor Judgment: Poor Results Labs Test 09/10/17 09:31 Blood Urea Nitrogen 13 MG/DL Creatinine 0.85 MG/DL Random Glucose 129 MG/DL Calcium Level 9.3 MG/DL Sodium Level 137 MEQ/L Potassium Level 4.6 MEQ/L Chloride Level 102 MEQ/L Carbon Dioxide Level 27.4 MEQ/L Anion Gap 8 MEQ/L Estimat Glomerular Filtration Rate 70 ML/MIN Hemoglobin A1c 5.9 % Triglycerides Level 103 MG/DL Cholesterol Level 280 MG/DL LDL Cholesterol 189 MG/DL HDL Cholesterol 70.7 MG/DL Cholesterol/HDL Ratio 3.96 RATIO Vitals/IOs Vital Signs Date Time Temp Pulse Resp B/P (MAP) Pulse Ox O2 Delivery O2 Flow Rate FiO2 09/10/17 06:33 97.3 68 22 153/53 (86) 99 09/09/17 06:39 Room Air Assessment & Plan Problem List: (1) Unspecified psychosis ICD Codes: F29 - Unspecified psychosis not due to a substance or known physiological condition Assessment & Plan I agree with the first opinion to continue petition. Criteria include acute psychosis. Continue current treatment Justification for Cont. Inpt. Patient will decompensate in a less restrictive setting Mike Wang DO Sep 10, 2017 16:47
[2017-09-10 17:38] VITALS: BP 124/84; PULSE 103; RESP 19; TEMP 98.7
--- NOTE | 2017-09-10 17:50 | EKG ---
Date Performed: 09/09/2017 Time Performed: 12:57:56 PTAGE: 51 years EKG: Sinus rhythm WITH SHORT OH INTERVAL NONSPECIFIC T-WAVE ABNORMALITY BORDERLINE ECG NO PREVIOUS TRACING DOCTOR: Allan Zamarripa Interpretating Date/Time 09/10/2017 17:49:02
[2017-09-11 06:08] VITALS: BP 122/68; PULSE 75; RESP 19; TEMP 97.2; O2SAT 97
[2017-09-11] MEDS: INSULIN ASPART SUPPLEMENTAL SCALE SQ SCH ×4 (08:00→21:00)
[2017-09-11] MEDS: NICOTINE 21 MG/24 HR PATCH T-DERMAL SCH (09:00)
[2017-09-11] MEDS: REMOVE OLD NICOTINE PATCH T-DERMAL SCH (09:00)
[2017-09-11] MEDS: metFORMIN HCL 500 MG TAB PO SCH ×2 (09:47→18:18)
[2017-09-11] MEDS: QUEtiapine FUMARATE 25 MG TAB PO SCH ×2 (09:47→21:04)
[2017-09-11] MEDS: LISINOPRIL 10 MG TAB PO SCH (09:47)
--- NOTE | 2017-09-11 12:09 | HHI.PR ---
Subjective Remarks Follow-up on patient with hypertension and diabetes. Patient seen and examined. Discussed with patient elevated cholesterol levels. Patient states this has been an ongoing problem for her and she is unable to tolerate any statin secondary to muscle pain. She is open to trying another class of medications. Patient denies any acute medical complaints. Denies any chest pain or shortness of breath. Denies any nausea, vomiting or abdominal pain. Denies any fever or chills. Denies any urinary difficulties, diarrhea or constipation. She becomes tearful discussing when she can be discharged and the circumstances for which led to her hospitalization. Discussed with nursing staff, no acute issues noted. Objective Vitals Vital Signs Date Time Temp Pulse Resp B/P (MAP) Pulse Ox O2 Delivery O2 Flow Rate FiO2 09/11/17 06:08 97.2 75 19 122/68 (86) 97 09/10/17 17:38 98.7 103 19 124/84 (97) Result Diagram: 09/08/17 1504 09/10/17 0931 Objective Remarks GENERAL: Well-nourished, well-developed female patient in NAD. Ambulating in the unit without any difficulty. Awake and alert. SKIN: Warm and dry. No rash. HEAD: Normocephalic. Atraumatic. EYES: EOMI. No scleral icterus. No injection or drainage. ENT: No nasal bleeding or discharge. Mucous membranes pink and moist. NECK: Trachea midline. CARDIOVASCULAR: Regular rate and rhythm. S1, S2 noted. No murmur appreciated. RESPIRATORY: Nonlabored. Clear to auscultation. Breath sounds equal bilaterally. GASTROINTESTINAL: Abdomen soft, non-tender, nondistended. Normoactive bowel sounds x4. MUSCULOSKELETAL: No obvious deformities. Extremities without clubbing, cyanosis , or edema. NEUROLOGICAL: Awake and alert. No obvious cranial nerve deficits. Able to move all extremities spontaneously. No focal neurologic findings appreciated. Normal speech. PSYCHIATRIC: Depressed, tearful. Medications and IVs Current Medications Medications (Trade) Dose Ordered Sig/Christel Route Start Time Stop Time Status Last Admin (SEROquel) 50 mg BID PO 09/09/17 21:00 09/11/17 09:47 (Ativan) 1 mg Q6H PRN PO 09/09/17 09:15 (Ativan Inj) 1 mg Q6H PRN IM 09/09/17 09:15 (Tylenol) 650 mg Q4H PRN PO 09/09/17 09:15 (Milk Of Magnesia Liq) 30 ml DAILY PRN PO 09/09/17 09:15 (Mag-Al Plus Susp Liq) 30 ml Q6H PRN PO 09/09/17 09:15 (Habitrol 21 Mg Patch.24 Hr) 1 patch DAILY T-DERMAL 09/09/17 09:15 (Romazicon Inj) 0.2 mg Q1M PRN IV PUSH 09/09/17 09:15 (Ativan) 1 mg Q4H PRN PO 09/09/17 09:15 (Ativan Inj) 1 mg Q4H PRN IV PUSH 09/09/17 09:15 (Ativan) 2 mg Q2H PRN PO 09/09/17 09:15 (Ativan Inj) 2 mg Q2H PRN IV PUSH 09/09/17 09:15 (Ativan Inj) 2 mg Q1H PRN IV PUSH 09/09/17 09:15 (Ativan Inj) 2 mg Q15M PRN IV PUSH 09/09/17 09:15 (Glucophage) 500 mg BIDPC PO 09/09/17 18:00 09/11/17 09:47 Miscellaneous Information 1 DAILY T-DERMAL 09/10/17 09:00 (D50w (Vial) Inj) 50 ml UNSCH PRN IV PUSH 09/09/17 13:15 (Glucagon Inj) 1 mg UNSCH PRN OTHER 09/09/17 13:15 (NovoLOG SUPPLEMENTAL SCALE) 1 ACHS SLIDING SCALE SQ 09/09/17 17:00 (Prinivil) 10 mg DAILY PO 09/10/17 09:00 09/11/17 09:47 A/P Problem List: (1) Diabetes ICD Code: E11.9 - Type 2 diabetes mellitus without complications (2) HTN (hypertension) ICD Code: I10 - Essential (primary) hypertension Assessment and Plan 52yo female with hypertension and diabetes admitted to inpatient psychiatric unit under [place] act: Psychosis -Management per psychiatric team Hypertension, controlled -Continue on lisinopril 10 mg daily -Continue to monitor BP and adjust treatment accordingly Diabetes -Continue metformin, blood sugars with good control -Accu-Cheks and insulin sliding scale -Diabetic diet Dyslipidemia -Cholesterol 280, LDL 189 -Patient unable to tolerate statins due to myopathy -begin Questran -patient to follow-up with her PCP back in [place] to repeat lipid profile in 6 -8 weeks DVT prophylaxis -Patient is ambulatory Patient appears stable from hospitalist standpoint. We'll sign off for now. Please reconsult if needed. Jennifer Lundberg Sep 11, 2017 12:09
--- NOTE | 2017-09-11 12:14 | HHI.PYPN ---
Subjective Remarks Patient was seen and case discussed with nursing. Patient is irritable and is demanding that I admits that there is "nothing wrong with me." Perseverant on discharge. Is no longer elevated like she was yesterday. Insight Remains poor. Compliant with medications Mental Status Examination Appearance: Appropriate Consciousness: Alert Orientation: x4 Motor Activity: Normal gait Speech: Unremarkable Language: Adequate Fund of Knowledge: Adequate Attention and Concentration: Easily Distracted Memory: Unremarkable Mood: Angry, Irritable Affect: Irritable, Other Thought Process & Associations: Circumstantial, Tangential Thought Content: Bizarre thinking, Preoccupations (with people lying), Delusional Hallucination Type: None Delusion Type: Paranoid Suicidal Ideation: No Suicidal Plan: No Suicidal Intention: No Homicidal Ideation: No Homicidal Plan: No Homicidal Intention: No Insight: Poor Judgment: Poor Results Vitals/IOs Vital Signs Date Time Temp Pulse Resp B/P (MAP) Pulse Ox O2 Delivery O2 Flow Rate FiO2 09/11/17 06:08 97.2 75 19 122/68 (86) 97 09/09/17 06:39 Room Air Assessment & Plan Problem List: (1) Unspecified psychosis ICD Codes: F29 - Unspecified psychosis not due to a substance or known physiological condition Assessment & Plan Continue current treatment plan Justification for Cont. Inpt. Patient will decompensate in a less restrictive setting Mike Wang DO Sep 11, 2017 12:14
[2017-09-11 18:11] VITALS: BP 132/74; PULSE 78; RESP 16; TEMP 98.2; O2SAT 97
[2017-09-11] MEDS: LORazepam 1 MG TAB PO PRN (21:05)
[2017-09-11] MEDS: MAGNESIUM HYDROXIDE SUSP 30 ML CUP PO PRN (21:05)
[2017-09-12 06:50] VITALS: BP 135/74; PULSE 97; RESP 18; TEMP 97.8; O2SAT 97
[2017-09-12] MEDS: INSULIN ASPART SUPPLEMENTAL SCALE SQ SCH ×4 (08:00→20:37)
[2017-09-12] MEDS: REMOVE OLD NICOTINE PATCH T-DERMAL SCH (09:00)
[2017-09-12] MEDS: NICOTINE 21 MG/24 HR PATCH T-DERMAL SCH (09:00)
[2017-09-12] MEDS: QUEtiapine FUMARATE 25 MG TAB PO SCH (09:00)
[2017-09-12] MEDS: CHOLESTYRAMINE 4 GM PACKET PO SCH (09:22)
[2017-09-12] MEDS: LISINOPRIL 10 MG TAB PO SCH (09:22)
[2017-09-12] MEDS: metFORMIN HCL 500 MG TAB PO SCH ×2 (09:22→17:30)
--- NOTE | 2017-09-12 11:56 | HHI.PYPN ---
Subjective Remarks Patient was seen for psychiatric evaluation. Chart was reviewed. Notes from weekend also reviewed. The case was discussed with nurse Lindsay also with social media content specialist Melisa. Psychiatric evaluation the patient reports that she has been doing much better during the weekend, she says that she feels "full thoughts inside", with increased energy, decreased need to sleep. The patient is very labile with frequent mood swings through the evaluation. The patient keeps blaming her for her hospitalization, and does not seem to have a very good insight of her current psychiatric condition. As per nursing charge, the patient has been elevated, hyperactive, acting manic in the unit, disruptive at times. Mental Status Examination Appearance: Appropriate Consciousness: Alert Orientation: x4 Motor Activity: Normal gait Speech: Unremarkable Language: Adequate Fund of Knowledge: Adequate Attention and Concentration: Easily Distracted Memory: Unremarkable Mood: Angry, Irritable Affect: Irritable, Other Thought Process & Associations: Circumstantial, Tangential Thought Content: Bizarre thinking, Preoccupations (with people lying), Delusional Hallucination Type: None Delusion Type: Paranoid Suicidal Ideation: No Suicidal Plan: No Suicidal Intention: No Homicidal Ideation: No Homicidal Plan: No Homicidal Intention: No Insight: Poor Judgment: Poor Results Vitals/IOs Vital Signs Date Time Temp Pulse Resp B/P (MAP) Pulse Ox O2 Delivery O2 Flow Rate FiO2 09/12/17 06:50 97.8 97 18 135/74 (94) 97 09/09/17 06:39 Room Air Assessment & Plan Problem List: (1) Unspecified psychosis ICD Codes: F29 - Unspecified psychosis not due to a substance or known physiological condition Assessment & Plan: Patient continues to display his manic behavior, with decreased need to sleep, increased energy, disruptive behavior, very talkative, labile mood, euphoric affect, disorganized. I would increase the Seroquel to 100 mg twice daily, and will add Depakote 250 mg twice daily for mood stabilization. Schedule family meeting for tomorrow with her .. Assessment & Plan Estimated LOS: days Justification for Cont. Inpt. Patient continues to be manic, psychotic and she needs psychiatric hospitalization for stabilization. Lawrence Nava MD Sep 12, 2017 11:56
[2017-09-12] MEDS: DIVALPROEX SODIUM E.R. 250 MG TAB PO SCH ×2 (15:01→20:12)
[2017-09-12 17:41] VITALS: BP 146/71; PULSE 101; RESP 18; TEMP 98; O2SAT 98
[2017-09-12] MEDS: QUEtiapine FUMARATE 100 MG TAB PO SCH (20:12)
[2017-09-12 21:00] VITALS: BP_SYST 140; BP_SYST 99; BP_DIAS 55; BP_DIAS 74; PULSE 83; RESP 18; TEMP 97.3
[2017-09-13] MEDS: INSULIN ASPART SUPPLEMENTAL SCALE SQ SCH ×4 (07:41→20:57)
[2017-09-13] MEDS: CHOLESTYRAMINE 4 GM PACKET PO SCH (08:10)
[2017-09-13] MEDS: DIVALPROEX SODIUM E.R. 250 MG TAB PO SCH ×3 (08:11→21:00)
[2017-09-13] MEDS: metFORMIN HCL 500 MG TAB PO SCH ×2 (08:12→17:56)
[2017-09-13] MEDS: QUEtiapine FUMARATE 100 MG TAB PO SCH (08:12)
[2017-09-13] MEDS: LISINOPRIL 10 MG TAB PO SCH (08:12)
[2017-09-13] MEDS: MAGNESIUM HYDROXIDE SUSP 30 ML CUP PO PRN (08:50)
[2017-09-13] MEDS: NICOTINE 21 MG/24 HR PATCH T-DERMAL SCH (09:00)
[2017-09-13] MEDS: REMOVE OLD NICOTINE PATCH T-DERMAL SCH (09:00)
--- NOTE | 2017-09-13 12:18 | HHI.PYPN ---
Subjective Remarks Psychiatric reevaluation. Patient also participated in family meeting along with her , field crop farm worker Melisa López, her nurse Neftali and myself. The patient seems to be sedated, with marked gait disturbance and also psychomotor retardation. However, the patient is prominently paranoid, fixated in certain people, in the meeting she was making several accusations and medications to work her counselor, many people in the staff in the unit. Patient also is very labile, with emotional incontinence, frequently crying, becoming angry and also smiled, have him difficulty self-regulating. She also seems to be disorganized, at times incoherent, with rapid speech, and goal- directed. In the unit as per nurse in charge, the patient has been interacting inappropriately with staff and peers, yesterday she was biting 1 of the patient' s to go to [place] with her. She has been at times disruptive, difficult to redirect, yesterday had to be transferred to 2700 and had to be medicated with ETOs. During the family meeting, her was able to share that the patient is far from baseline. He does not feel safe taking the patient in this condition back to [place]. He agrees that the patient needs to continue psychiatric hospitalization for stabilization. He was widely educated about the importance of continuing treatment with the patient and he verbalizes agreement with that. Review of Systems Psychiatric: COMPLAINS OF: Mood changes, Delusions Mental Status Examination Appearance: Appropriate Consciousness: Alert Orientation: x4 Motor Activity: Normal gait Speech: Unremarkable Language: Adequate Fund of Knowledge: Adequate Attention and Concentration: Easily Distracted Memory: Unremarkable Mood: Angry, Irritable Affect: Irritable, Other Thought Process & Associations: Circumstantial, Tangential Thought Content: Bizarre thinking, Preoccupations (with people lying), Delusional Hallucination Type: None Delusion Type: Paranoid Suicidal Ideation: No Suicidal Plan: No Suicidal Intention: No Homicidal Ideation: No Homicidal Plan: No Homicidal Intention: No Insight: Poor Judgment: Poor Results Vitals/IOs Vital Signs Date Time Temp Pulse Resp B/P (MAP) Pulse Ox O2 Delivery O2 Flow Rate FiO2 09/12/17 21:00 97.3 83 18 140/74 (96) 09/12/17 17:41 98 Assessment & Plan Problem List: (1) Unspecified psychosis ICD Codes: F29 - Unspecified psychosis not due to a substance or known physiological condition (2) Bipolar 1 disorder ICD Codes: F31.9 - Bipolar disorder, unspecified Assessment & Plan: Patient continues to show manic behavior, labile mood, inappropriate affect, difficulties modulating behavior and emotions, paranoia and grandiose delusions, disorganized behavior, agitation and aggressiveness in the unit. Patient also seems to be quite sedated and with gait disturbance. Continue Depakote 250 mg twice daily, will decrease Seroquel to 50 mg twice daily to avoid oversedation. Assessment & Plan Estimated LOS: days Justification for Cont. Inpt. Patient is acutely manic, psychotic, she needs to continue psychiatric hospitalization. His Lawrence Nava MD Sep 13, 2017 12:18
[2017-09-13 18:14] VITALS: BP 168/86; PULSE 76; RESP 18; TEMP 98.2; O2SAT 98
[2017-09-13] MEDS: QUEtiapine FUMARATE 25 MG TAB PO SCH ×2 (20:56→21:00)
[2017-09-14 05:59] VITALS: BP 113/67; PULSE 80; RESP 16; TEMP 97.6; O2SAT 98
[2017-09-14] MEDS: INSULIN ASPART SUPPLEMENTAL SCALE SQ SCH ×4 (06:39→21:00)
[2017-09-14] MEDS: REMOVE OLD NICOTINE PATCH T-DERMAL SCH (09:00)
[2017-09-14] MEDS: NICOTINE 21 MG/24 HR PATCH T-DERMAL SCH (09:00)
[2017-09-14] MEDS: DIVALPROEX SODIUM E.R. 250 MG TAB PO SCH ×2 (09:03→20:53)
[2017-09-14] MEDS: CHOLESTYRAMINE 4 GM PACKET PO SCH (09:03)
[2017-09-14] MEDS: LISINOPRIL 10 MG TAB PO SCH (09:04)
[2017-09-14] MEDS: QUEtiapine FUMARATE 25 MG TAB PO SCH ×2 (09:04→20:53)
[2017-09-14] MEDS: metFORMIN HCL 500 MG TAB PO SCH ×2 (09:04→17:45)
--- NOTE | 2017-09-14 15:56 | HHI.PYPN ---
Subjective Remarks Patient seen for follow-up, chart reviewed. Discussion was self-reported patient continues to be somewhat labile and paranoid with staff but compliant with medications. Patient was found participating group calm, cooperative but tearful during interview as well. Patient states that she is doing "great" reports sleeping well. Patient discussed being upset about having been put in "timeout" which she also receved an ETO which was about 2 days ago. Patient denies any to enable disturbances since states she is feeling "fine" denies any perceptual disturbances or delusions. Patient states she continues to have some discord with and unclear whether she will continue to remain here for the rest of the week return back to [place] immediately. Patient aware she will present to mental health court tomorrow. Review of Systems Except as stated in HPI: all other systems reviewed are Neg Mental Status Examination Appearance: Appropriate Consciousness: Alert Orientation: x4 Motor Activity: Normal gait Speech: Unremarkable Language: Adequate Fund of Knowledge: Adequate Attention and Concentration: Easily Distracted Memory: Unremarkable Mood: Irritable Affect: Irritable, Other (tearful at times) Thought Process & Associations: Circumstantial, Tangential Thought Content: Bizarre thinking, Ideas of reference, Preoccupations (with people lying), Delusional Hallucination Type: None Delusion Type: Paranoid Suicidal Ideation: No Suicidal Plan: No Suicidal Intention: No Homicidal Ideation: No Homicidal Plan: No Homicidal Intention: No Insight: Poor Judgment: Poor Results Vitals/IOs Vital Signs Date Time Temp Pulse Resp B/P (MAP) Pulse Ox O2 Delivery O2 Flow Rate FiO2 09/14/17 05:59 97.6 80 16 113/67 (82) 98 Assessment & Plan Problem List: (1) Unspecified psychosis ICD Codes: F29 - Unspecified psychosis not due to a substance or known physiological condition (2) Bipolar 1 disorder ICD Codes: F31.9 - Bipolar disorder, unspecified Assessment & Plan Patient this time he is a have some lability and mood, continues to be paranoid about staff and has been but denying any perceptual disturbances or delusions. Patient continues to be compliant with medications, continue current treatment. Will draw VPA levels this morning. Patient presented to mental health Court tomorrow. Discharge planning in progress. Justification for Cont. Inpt. At risk for decompensation at lower level care. Discharge Planning Patient will return back to her residence when psychiatrically stable. Jignesh Knutson MD Sep 14, 2017 15:56
[2017-09-14 17:19] VITALS: BP 128/63; PULSE 95; RESP 16; TEMP 98.1; O2SAT 98
[2017-09-14] MEDS: MAGNESIUM HYDROXIDE SUSP 30 ML CUP PO PRN (17:49)
[2017-09-14] MEDS: LORazepam 1 MG TAB PO PRN (21:51)
[2017-09-15 00:15] VITALS: BP 120/60; PULSE 107; RESP 18; O2SAT 98
[2017-09-15 05:33] VITALS: BP 110/66; PULSE 74; RESP 17; TEMP 98.1; O2SAT 97
[2017-09-15] MEDS: INSULIN ASPART SUPPLEMENTAL SCALE SQ SCH ×2 (07:34→11:36)
[2017-09-15] MEDS: NICOTINE 21 MG/24 HR PATCH T-DERMAL SCH (09:00)
[2017-09-15] MEDS: CHOLESTYRAMINE 4 GM PACKET PO SCH (09:00)
[2017-09-15] MEDS: REMOVE OLD NICOTINE PATCH T-DERMAL SCH (09:00)
[2017-09-15] MEDS: DIVALPROEX SODIUM E.R. 250 MG TAB PO SCH (09:57)
[2017-09-15] MEDS: QUEtiapine FUMARATE 25 MG TAB PO SCH (09:57)
[2017-09-15] MEDS: LISINOPRIL 10 MG TAB PO SCH (09:57)
[2017-09-15] MEDS: metFORMIN HCL 500 MG TAB PO SCH (09:57)
[2017-09-15] MEDS ORDERED: LISI10TA3 PO (10:03)
[2017-09-15] MEDS ORDERED: DIVA250ER PO (10:03)
[2017-09-15] MEDS ORDERED: QUET5TAB PO (10:03)
[2017-09-15] MEDS ORDERED: CHOL4POW4 PO (10:03)
[2017-09-15] MEDS ORDERED: METF500 PO (10:03)
--- NOTE | 2017-09-15 10:04 | HHI.DS ---
Psychiatry Discharge Summary Inpatient Psychiatric care?: Yes Advance Directive: No Reason Not Provided: DOES NOT HAVE Mental Health AdvanceDirective: No Health Care Proxy: No Admission Admission Date Sep 09, 2017 at 09:13 Admission Diagnosis: (1) Unspecified psychosis ICD Code: F29 - Unspecified psychosis not due to a substance or known physiological condition (2) Bipolar 1 disorder ICD Code: F31.9 - Bipolar disorder, unspecified Brief History The patient is a 51 year-old woman, she is , domiciled in [place] , she is imbrication in [employer], employed, she has a self-reported psychiatric history of anxiety and ADHD, no previous psychiatric hospitalizations, no previous suicide attempts, she is in Adderall 30 mg 4 times per day and Xanax 1 mg 3 times per day, prescribed by PCP, she has a medical history of hypertension and diabetes, who was placed under [place] act by law enforcement due to aggressive and disorganized behavior. The [place] act report alleges that the patient stopped taking her Adderall approximately 9 weeks ago when she started to drink a special coffee for weight loss. Patient began to act irrational, aggressive and argumentative towards her . She challenge officers and demanded to be arrested, shot and rotates. She stated that if her would not tell the truth she was going to harm herself. Patient toxicologies is positive for benzodiazepines and amphetamines. Documentation was reviewed. Collateral information from her Skip Davis, , was obtained. The patient was initially seen by Ms. Tomeka Molina yesterday, her documentation was reviewed. She left the patient for reevaluation and longitudinal observation with a hypothesis that the patient most probably was just intoxicated and by today she will be sober and at the baseline. As per nurse report, the patient has been very disruptive in the unit , agitated, disorganized, making a lot of accusations and alligations and needed ETO to calm her down. As per Ms Molina yesterday's: Patient arrived in [facility] pod and has been intrusive , uncooperative refusing to answer questions and engage in psychiatric screening, talking very loudly with her family members on the phone, crying intermittently , threatening to file a lawsuit against the police department, and anyone involved in her care " that tells a lie". She is alert, oriented, her speech is loud. She is tangential. She demands that she see the notes that I am writing down as well as demanding me to write wide she believes is important for me to write. He is paranoid she is worried that people are going to be able to hear what she saying. She is also very concerned that her as well as her family, and the police told her that they never lied and that she finds it very hard to believe. Today on psychiatric evaluation the patient is very hyperactive, psychomotor agitated, talkative, speaking very loud in the unit. It took me a long time to de-escalate her and have a conversation with her. The patient reports that she has been kidnapped he "by these people and his nurses". Says that the police has been lying about her. She says that the only thing that she has been doing is trying to make peace with her family. "I been trying to go to their houses and tell them what is wrong with them". As the patient started talking about her daughter, she started crying profusely and becomes tangential and disorganized. The patient states that she has not been taking benzodiazepine and amphetamines in the last week, "I suspect that somebody has been putting the amphetamines in my food". She says that she has been taking 30 mg of Adderall 4 times per day for 17 years "for my ADHD". She also has been taken Xanax 1 mg 3 times per day for a long time, which is unable to clarify what is the reason she is taking Xanax for, she states "is just for insomnia". She denies suicidal and homicidal ideation, she denies visual and auditory hallucinations. During my evaluation the patient has a very rapid speech, with frequent development, loosening of associations, she is internally preoccupied, highly paranoid. As per conversation with her , he says that in the last 8 days the patient has barely been sleeping. She has been focused in multiple activity during the day and nighttime. Apparently, she has been going to family members and friends houses and telling them that she is there to help them with their problems "when there is not even any problem". She also has been making multiple behaviors that do not make any sense and posting then in Facebook. As well, she has been making multiple irrational comments in Facebook. He clarifies that is the patient is in the ER she has been calling him every 5 minutes and talking nonsense with him. He says that the patient has not been herself, she has been experiencing a very important change in her personality in the last 8 days. This is the first time that the patient has an episode like this. He clarifies that he is not very sure if the patient has been abusing her medications, but he is a started to suspect the most probably abusing Adderall and Xanax is part responsible for this presentation. He is in a total agreement with a psychiatric hospitalization for the patient started medications for psychosis. After the patient was evaluated by me, he started to request to be discharged immediately, I tried to de-escalate her verbally, but she was not responsive and threatened his staff and other patients and had to be medicated with Haldol 5 mg and Ativan 2 mg IM to help her to calm down. Tobacco Use In Past 30 Days: No Tobacco Past 30 Days Alcohol Use: Never Hospital Course The patient is a 51 year-old woman, she is , domiciled in [place] , she is imbrication in [employer], employed, she has a self-reported psychiatric history of anxiety and ADHD, no previous psychiatric hospitalizations, no previous suicide attempts, she is in Adderall 30 mg 4 times per day and Xanax 1 mg 3 times per day, prescribed by PCP, she has a medical history of hypertension and diabetes, who was placed under [place] act by law enforcement due to aggressive and disorganized behavior. The [place] act report alleges that the patient stopped taking her Adderall approximately 9 weeks ago when she started to drink a special coffee for weight loss. Patient began to act irrational, aggressive and argumentative towards her . She challenge officers and demanded to be arrested, shot which patient was admitted to the inpatient psychiatry unit for further evaluation and management. Patient was started on Depakote 250mg BID, quetiapine 50mg PO BID, as well as his medications for his chronic medical issues which she tolerated well. Patient initially was noted to be manic, with poor impulse control, disorganized and intrusive during admission as well as having required ETO once due to agitation but as treatment progressed had improvement of mood, less labile, with better behavioral control. She endorsed feeling well with no physical complaints during hospitalization. Patient was adherent to medication regimen and participated in self care. Patient was taken to mental health court for petition for involuntary hospitalization but was determined by justice court judge to be discharged back to . Despite recommendations to remain for continued stabilization patient continued to want discharge. Upon discharge patient stated feeling good, stated feeling okay noted to be calm and cooperative with staff. Patient was counseled importance of adherence to treatment. She agreed to continuing medical recommendations, treatment and cooperate for continuity of care. Patient; denies SI, HI, AVH or delusions. Supportive psychotherapy provided. Suicide and violence risk assessment on day of discharge both suggest lower imminent risk, and the patient's level of function is adequate for planned level of outpatient care and will be discharged. Patient was advisedd to return to psychiatric emergency room for any concerning psychiatric symptoms. Patient agrees with plan. Results Blood Pressure 110 / 66 Vital Signs Date Time Temp Pulse Resp B/P (MAP) Pulse Ox O2 Delivery O2 Flow Rate FiO2 09/15/17 05:33 98.1 74 17 110/66 (81) 97 Laboratory Tests Test 09/15/17 08:22 Valproic Acid (Depakene) Level 25 MCG/ML (50-100) Laboratory Results Test 09/10/17 09:31 09/15/17 08:22 Cholesterol Level 280 MG/DL (120-200) HDL Cholesterol 70.7 MG/DL (40.0-60.0) Hemoglobin A1c 5.9 % (4.3-6.0) LDL Cholesterol 189 MG/DL (0-99) Triglycerides Level 103 MG/DL (42-150) Valproic Acid (Depakene) Level 25 MCG/ML (50-100) Summary of Procedures None Pending results at discharge: No Medications # of Antipsychotic meds at D/C: 1 Approp Antipsych med options 1 - Minimum of three failed multiple trials of monotherapy. 2 - Documented plan to taper to monotherapy due to previous use of multiple meds OR cross-taper in progress at D/C. 3 - Documentation of augmentation of Clozapine. 4 - Justification other than those listed in allowable values 1-3, document here : Discharge Discharge Date: Sep 15, 2017 Discharge Diagnosis: (1) Unspecified psychosis ICD Code: F29 - Unspecified psychosis not due to a substance or known physiological condition (2) Bipolar 1 disorder ICD Code: F31.9 - Bipolar disorder, unspecified Pt Condition on Discharge: Stable Discharge Disposition: Discharge Home Discharge Instructions Diet Instructions: As Tolerated, No Restrictions Activities you can perform: Regular-No Restrictions Discharge Time > 30 minutes Mental Status Examination Appearance: Appropriate Consciousness: Alert Orientation: x4 Motor Activity: Normal gait Speech: Unremarkable Language: Adequate Fund of Knowledge: Adequate Attention and Concentration: Easily Distracted Memory: Unremarkable Mood: Anxious Affect: Irritable (less so ) Thought Process & Associations: Circumstantial Thought Content: Bizarre thinking, Ideas of reference, Delusional (less so) Hallucination Type: None Delusion Type: Paranoid (less so) Suicidal Ideation: No Suicidal Plan: No Suicidal Intention: No Homicidal Ideation: No Homicidal Plan: No Homicidal Intention: No Insight: Poor Judgment: Poor Discharge/Advance Care Plan Health Problems: (1) Unspecified psychosis (2) Bipolar 1 disorder Goals to promote your health * To prevent worsening of your condition and complications * To maintain your health at the optimal level Directions to meet your goals Take your medications as prescribed Follow your dietary instruction Follow activity as directed Keep your appointments as scheduled Take your immunizations and boosters as scheduled If your symptoms worsen call your PCP, if no PCP go to Urgent Care Center or Emergency Room For 17/01 questions related to your inpatient stay or results of tests pending at discharge, please contact Dr. Jignesh Knutson at Smoking is Dangerous to Your Health. Avoid second hand smoking Jignesh Knutson MD Sep 15, 2017 10:04
== END 2017-09-15 13:00 | disposition home or self-care (01) | DRG 885 ==
LOC: NEPD 14:23 → NEDA 09-09 09:13 → H270 09-09 12:14 → H260 09-11 12:30
PROVIDERS: ADMIT Student in an Organized Health Care Education/Training Program; ATTEND Student in an Organized Health Care Education/Training Program
DX: F29 Unspecified psychosis not due to a substance or known physiological condition (principal); E11.9 Type 2 diabetes mellitus without complications; I10 Essential (primary) hypertension; F90.9 Attention-deficit hyperactivity disorder, unspecified type; F31.9 Bipolar disorder, unspecified; G47.00 Insomnia, unspecified; F13.10 Sedative, hypnotic or anxiolytic abuse, uncomplicated; F15.10 Other stimulant abuse, uncomplicated; E78.5 Hyperlipidemia, unspecified; Z79.899 Other long term (current) drug therapy; Z79.84 Long term (current) use of oral hypoglycemic drugs
CPT/HCPCS: 80048; 80053; 80061; 80164; 80307; 82948; 83036; 84443; 85025; 93005; 96372; J1630; J1815; J2060; Q0163